=== PATIENT | female | born 1960 | race Caucasian/White ===

== ENCOUNTER → 2020-03-04 | Emergency (ER) | payer MEDICAID, OTHER ==
[~2020-03-04] VITALS: Ht 170.2 cm; Wt 68.0 kg
[~2020-03-04] MED LIST: CAP125T; PANTOPRAZOLE
[2020-03-04 17:55] VITALS: BP 154/96
== END | disposition home or self-care (01) ==
LOC: EDUNIT# 17:23 → EDBD 17:32 → ER 17:36
DX: E11.649 Type 2 diabetes mellitus with hypoglycemia without coma (principal); E78.5 Hyperlipidemia, unspecified; I10 Essential (primary) hypertension; R51 Headache; Z88.1 Allergy status to other antibiotic agents
CPT/HCPCS: 70450; 82962; 93005